=== PATIENT | female | born 1955 ===

== ENCOUNTER 2020-11-26 19:18 | Emergency (ER) | payer OTHER ==
[~2020-11-26] VITALS: Ht 157.5 cm; Wt 69.4 kg
[~2020-11-26 19:18] MED LIST: BENADRYL ALLERG25 MG PO; CEFUROXIME500 MG PO; DIOVAN160 M1 PO; NIFE60TA3 PO; PROCARDIA90 MG/BLIS
[2020-11-26] MEDS ORDERED: SYNTHROID75 MCG (20:16)
== END 2020-11-26 21:15 | disposition home or self-care (01) ==
LOC: ER 19:18
DX: R09.81 Nasal congestion (principal)